=== PATIENT | male | born 1965 | race Caucasian/White ===

== ENCOUNTER 2018-05-31 19:43 | Observation (INO) | payer BC ==
[2018-05-31] MEDS ORDERED: Aspirin 81 MG Tab.Chew PO ONE (19:51)
[2018-05-31] MEDS ORDERED: Sodium Chloride 0.9% 10 ML Syringe FLUSH PRN (19:52)
[2018-05-31] MEDS ORDERED: Sodium Chloride 0.9% 2.5 ML Syringe FLUSH PRN (19:52)
[2018-05-31] MEDS ORDERED: Aspirin 81 MG Tab.Chew ONE (19:54)
--- NOTE | 2018-05-31 19:58 | EDM.PDOC ---
ED HPI GENERAL MEDICAL PROBLEM - General Chief Complaint: Respiratory Problem Stated Complaint: SOB Time Seen by Provider: 05/31/18 19:51 - History of Present Illness INITIAL COMMENTS - FREE TEXT/NARRATIVE: HISTORY AND PHYSICAL: History of present illness: The patient is a 53-year-old male with no significant past medical history who presents with complaints of feeling lightheaded dizzy and short of breath that started several days ago and has been episodic in nature. The patient was seen at [facility] ER on Sunday night and had a workup there for similar symptoms and he said that some of his tests were abnormal so he was transferred to [facility] in [place]. He said he was not admitted to the hospital but he spent several hours in the ER and they did more tests and he was discharged home. The doctor at [facility] gave him a prescription for a beta leroy and he says that he started that and today is the second day of him taking that medication. He was also told to take an aspirin and one baby every day and he is not sure why the doctor started him on these meds. The patient says that he did not have any follow-up set up when he was discharged from [facility] and he is not a resident of this area and lives in [place] where his family doctor is. The patient has no significant social or family history and he says his mom had A. fib and his dad had a valve replacement but no cardiac disease. The patient says that since he left [facility] he felt initially good and then he has had several episodes of similar symptoms for which she presents tonight which have come and gone and have not been extreme. Tonight he said that he felt lightheaded dizzy and short of breath, the symptoms he has been having all along , but they seem to be more intense so he came here for evaluation. He is not passing out or blacking out has no abdominal pain fevers chills cough or upper respiratory symptoms vomiting or diarrhea. He is eating all his meals. Here in the ED he says he also has slight pain at the upper part of his sternum when he touches it but he does not feel it unless he is pushing on it. He has no trauma to his chest. The patient tells me he had a whole lab panel done at home recently and was all within normal limits and he had his cholesterol or lipids checked in the spring and they were normal. The patient tells me he did take his new beta leroy today as prescribed as well as one baby aspirin. Patient tells nursing that he has had similar symptoms on and off since that time her and he has seen his provider at home and also had a 30 day Holter monitor which he has not met with his physician at home to discuss the results. He did not initially offer this information to me. Review of systems: As per history of present illness and below otherwise all systems reviewed and negative. Past medical history: As per history of present illness and as reviewed below otherwise noncontributory. Surgical history: As per history of present illness and as reviewed below otherwise noncontributory. Social history: No reported history of drug or alcohol abuse. Family history: As per history of present illness and as reviewed below otherwise noncontributory. Physical exam: General: Well-developed well-nourished mildly overweight man who is nontoxic and seems slightly anxious in the ED but vital signs are reviewed by me. HEENT: Atraumatic, normocephalic, pupils reactive, negative for conjunctival pallor or scleral icterus, mucous membranes moist, throat clear, neck supple, nontender, trachea midline. Lungs: Clear to auscultation, breath sounds equal bilaterally, chest is tender to palpation at the upper third of the sternum when I touch but there is no defects deformities or crepitus. When I palpate this area reproduces the pain the patient is talking about Heart: S1S2, regular, negative for clicks, rubs, or JVD. No overt murmurs Abdomen: Soft, nondistended, nontender. Negative for masses or hepatosplenomegaly. NABS Pelvis: Stable nontender. Genitourinary: Deferred. Rectal: Deferred. Extremities: Atraumatic, negative for cords or calf pain. Neurovascular unremarkable. No pedal edema or leg asymmetry Neuro: Awake, alert, oriented. Cranial nerves II through XII unremarkable. Cerebellum unremarkable. Motor and sensory unremarkable throughout. Exam nonfocal. Diagnostics: EKG CBC CMP INR d-dimer troponin chest x-ray Therapeutics: IV O2 monitor 3 baby aspirin as patient took one this morning Patient and son at bedside are aware of all testing results and recommendation for observation admission. He is aware of my concerns and accepts them. As I'm talking to him he saying that he is having a brief episode of his symptoms were he feels kind of woozy and lightheaded and during this brief period of 15-20 seconds I observe the monitor to give me no signs of ectopy or arrhythmia and no change in O2 sat and blood pressure stays stable. Please note that the patient does tell me that he is in town for a and he has been under some additional emotional stress. 2114: Testing results were discussed with the hospitalist Dr. Cooper who agrees with observation admission. I've also discussed all testing results with the patient and now his at bedside and the patient is now agreeable for admission. He continues to talk about how there were some events at his visit to the ER in [place] that seemed atypical and it was the provider at that facility they gave him the prescription for the beta leroy. He says that something was positive there but he can't recall what and he also says that at one point he did drop his blood pressure or heart rate but he can't recall. We will have the patient sign a release to get these medical records to help assist the hospitalist. Impression: Episodic lightheadedness and dyspnea, rule out anginal equivalent Definitive disposition and diagnosis as appropriate pending reevaluation and review of above. Chest Pain Score (Numeric/FACES): 8 - Related Data Allergies Allergy/AdvReac Type Severity Reaction Status Date / Time No Known Allergies Allergy Verified 05/31/18 19:51 Home Meds: Home Meds Metoprolol Succinate [Toprol XL] 25 mg PO DAILY 05/31/18 [History] ED ROS GENERAL - Review of Systems Review Of Systems: ROS reveals no pertinent complaints other than HPI. ED EXAM, GENERAL - Physical Exam Exam: See Below (see dictation) Course - Vital Signs Last Recorded V/S: Last Vital Signs Temp 36.5 C 05/31/18 21:15 Pulse 77 05/31/18 21:15 Resp 18 05/31/18 21:15 BP 146/91 H 05/31/18 21:15 Pulse Ox 96 05/31/18 21:15 - Orders/Labs/Meds Orders: Active Orders 24 hr Category Date Time Status Patient Status [ADT] Stat ADT 05/31/18 21:41 Ordered Cardiac Monitoring [RC] . DIRECTED Care 05/31/18 19:52 Active EKG Documentation Completion [RC] STAT Care 05/31/18 19:52 Active Oxygen Therapy, ED [RC] ASDIRECTED Care 05/31/18 19:52 Active Pulse Oximetry [RC] ASDIRECTED Care 05/31/18 19:52 Active Chest 1V Frontal [CR] Stat Exams 05/31/18 19:52 Taken Sodium Chloride 0.9% [Saline Flush] Med 05/31/18 19:52 Active 10 ml FLUSH ASDIRECTED PRN Sodium Chloride 0.9% [Saline Flush] Med 05/31/18 19:52 Active 2.5 ml FLUSH ASDIRECTED PRN Saline Lock Insert [OM.PC] Stat Oth 05/31/18 19:52 Ordered Medication Orders Sodium Chloride (Saline Flush) 10 ml FLUSH ASDIRECTED PRN PRN Reason: Keep Vein Open Sodium Chloride (Saline Flush) 2.5 ml FLUSH ASDIRECTED PRN PRN Reason: Keep Vein Open Labs: Laboratory Tests 05/31/18 05/31/18 05/31/18 Range/Units 19:58 19:58 19:58 WBC 9.73 (4.0-11.0) K/uL RBC 5.31 (4.50-5.90) M/uL Hgb 15.6 (13.0-17.0) g/dL Hct 46.0 (38.0-50.0) % MCV 86.6 (80.0-98.0) fL MCH 29.4 (27.0-32.0) pg MCHC 33.9 (31.0-37.0) g/dL RDW Std Deviation 40.5 (28.0-62.0) fl RDW Coeff of Paty 13 (11.0-15.0) % Plt Count 166 (150-400) K/uL MPV 10.10 (7.40-12.00) fL Neut % (Auto) 60.8 (48.0-80.0) % Lymph % (Auto) 28.7 (16.0-40.0) % [place] % (Auto) 8.3 (0.0-15.0) % Eos % (Auto) 1.6 (0.0-7.0) % Baso % (Auto) 0.6 (0.0-1.5) % Neut # (Auto) 5.9 H (1.4-5.7) K/uL Lymph # (Auto) 2.8 H (0.6-2.4) K/uL [place] # (Auto) 0.8 (0.0-0.8) K/uL Eos # (Auto) 0.2 (0.0-0.7) K/uL Baso # (Auto) 0.1 (0.0-0.1) K/uL Nucleated RBC % 0.0 /100WBC Nucleated RBCs # 0 K/uL INR 0.98 D-Dimer, Quantitative 0.21 (0.0-0.52) mg/LFEU Sodium 140 (136-148) mmol/L Potassium 3.6 (3.5-5.1) mmol/L Chloride 104 (98-107) mmol/L Carbon Dioxide 27.0 (21.0-32.0) mmol/L BUN 19 H (7.0-18.0) mg/dL Creatinine 1.0 (0.8-1.3) mg/dL Est Cr Clr Drug Dosing TNP Estimated GFR (MDRD) > 60.0 ml/min Glucose 106 (74-106) mg/dL Calcium 9.4 (8.5-10.1) mg/dL Total Bilirubin 0.2 (0.2-1.0) mg/dL AST 16 (15-37) IU/L ALT 47 (14-63) IU/L Alkaline Phosphatase 71 (46-116) U/L Troponin I < 0.050 (0.000-0.056) ng/mL Total Protein 7.7 (6.4-8.2) g/dL Albumin 3.9 (3.4-5.0) g/dL Globulin 3.8 (2.6-4.0) g/dL Albumin/Globulin Ratio 1.0 (0.9-1.6) Meds: Medications Generic Name Dose Route Start Last Admin Trade Name Freq PRN Reason Stop Dose Admin Sodium Chloride 10 ml 05/31/18 19:52 Saline Flush FLUSH ASDIRECTED PRN Keep Vein Open Sodium Chloride 2.5 ml 05/31/18 19:52 Saline Flush FLUSH ASDIRECTED PRN Keep Vein Open Discontinued Medications Generic Name Dose Route Start Last Admin Trade Name Freq PRN Reason Stop Dose Admin Aspirin 243 mg 05/31/18 19:51 05/31/18 19:57 Aspirin PO 05/31/18 19:52 243 mg ONETIME ONE Administration Aspirin Confirm 05/31/18 19:54 05/31/18 19:58 Aspirin Administered 05/31/18 19:55 Not Given Dose 243 mg .ROUTE .STK-MED ONE Departure - Departure Time of Disposition: 21:45 Disposition: Refer to Observation Condition: Good Clinical Impression: Lightheadedness, Anginal equivalent Dyspnea Qualifiers: Dyspnea type: unspecified Qualified Code(s): R06.00 - Dyspnea, unspecified - Discharge Information Referrals: PCP,None [Primary Care Provider] - Forms: ED Department Discharge - My Orders Last 24 Hours: My Active Orders 05/31/18 19:52 Cardiac Monitoring [RC] . DIRECTED EKG Documentation Completion [RC] STAT Oxygen Therapy, ED [RC] ASDIRECTED Pulse Oximetry [RC] ASDIRECTED Chest 1V Frontal [CR] Stat Sodium Chloride 0.9% [Saline Flush] 10 ml FLUSH ASDIRECTED PRN Sodium Chloride 0.9% [Saline Flush] 2.5 ml FLUSH ASDIRECTED PRN Saline Lock Insert [OM.PC] Stat 05/31/18 21:41 Patient Status [ADT] Stat - Assessment/Plan Last 24 Hours: My Active Orders 05/31/18 19:52 Cardiac Monitoring [RC] . DIRECTED EKG Documentation Completion [RC] STAT Oxygen Therapy, ED [RC] ASDIRECTED Pulse Oximetry [RC] ASDIRECTED Chest 1V Frontal [CR] Stat Sodium Chloride 0.9% [Saline Flush] 10 ml FLUSH ASDIRECTED PRN Sodium Chloride 0.9% [Saline Flush] 2.5 ml FLUSH ASDIRECTED PRN Saline Lock Insert [OM.PC] Stat 05/31/18 21:41 Patient Status [ADT] Stat
[2018-05-31 20:35] LABS: CHLORIDE,CL 104 mmol/L (98-107); SODIUM,NA 140 mmol/L (136-148)
--- NOTE | 2018-05-31 23:24 | PCM.HP ---
H&P History of Present Illness - General Date of Service: 05/31/18 Admit Problem/Dx: Admission Diagnosis/Problem Admission Diagnosis/Problem Lightheadedness - History of Present Illness Initial Comments - Free Text/Narative: 53 yo male who for the past month has been having lightheadedness, palpitations and chest tightness. It occurs about once a day and last 20 to 30 minutes at a time. He was placed on an event monitor for this but has taken it off and not sent it back to be interpreted yet. He was seen in [place] on the with these symptoms he was troponin was normal and CKMB minimally elevated at 4. He was given nitroglycerin and his blood pressure droped and he was rescucitated with IV fluids. He was transferred to [place] and was discharged from their ER. Today he has had the worst of the symptoms. In the ED his EKG and troponin did not show any signs of cardiac ischemia. ED physician referred for observation. Chest Pain Score (Numeric/FACES): 8 - Related Data Allergies/Adverse Reactions: Allergies Allergy/AdvReac Type Severity Reaction Status Date / Time No Known Allergies Allergy Verified 05/31/18 23:44 Home Medications: Home Meds Aspirin 81 mg PO DAILY 05/31/18 [History] Metoprolol Succinate [Toprol XL] 50 mg PO DAILY 05/31/18 [History] Past Medical History - Past Health History Medical/Surgical History: Denies Medical/Surgical History - Infectious Disease History Infectious Disease History: Reports: Chicken Pox - Past Surgical History HEENT Surgical History: Reports: Oral Surgery, Tonsillectomy Neurological Surgical History: Reports: Other (See Below) Other Neurological Surgeries/Procedures: Cerival surgery, plate from one to another. Unsure of exact surgery. Social & Family History - Family History Family Medical History: Noncontributory - Tobacco Use Smoking Status *Q: Never Smoker Used Tobacco, but Quit: Yes Month/Year Tobacco Last Used: 05/07 Second Hand Smoke Exposure: No - Caffeine Use Caffeine Use: Reports: Coffee Other Caffeine Use: Gave up Caffeine a few weeks ago. - Recreational Drug Use Recreational Drug Use: No H&P Review of Systems - Review of Systems: Review Of Systems: ROS reveals no pertinent complaints other than HPI. Exam - Exam Exam: See Below - Vital Signs Vital Signs: Last Vital Signs Temp 36.2 C 05/31/18 22:30 Pulse 74 01/11/19 22:30 Resp 16 05/31/18 22:30 BP 142/89 H 05/31/18 22:30 Pulse Ox 95 05/31/18 22:30 Weight: 116.528 kg - Exam General: Alert, Oriented Lungs: Clear to Auscultation, Normal Respiratory Effort Cardiovascular: Regular Rate, Regular Rhythm GI/Abdominal Exam: Soft, Non-Tender Extremities: Non-Tender Skin: Warm, Dry, Intact - Patient Data Lab Results Last 24 hrs: Laboratory Results - last 24 hr 05/31/18 05/31/18 05/31/18 Range/Units 19:58 19:58 19:58 WBC 9.73 (4.0-11.0) K/uL RBC 5.31 (4.50-5.90) M/uL Hgb 15.6 (13.0-17.0) g/dL Hct 46.0 (38.0-50.0) % MCV 86.6 (80.0-98.0) fL MCH 29.4 (27.0-32.0) pg MCHC 33.9 (31.0-37.0) g/dL RDW Std Deviation 40.5 (28.0-62.0) fl RDW Coeff of Paty 13 (11.0-15.0) % Plt Count 166 (150-400) K/uL MPV 10.10 (7.40-12.00) fL Neut % (Auto) 60.8 (48.0-80.0) % Lymph % (Auto) 28.7 (16.0-40.0) % [place] % (Auto) 8.3 (0.0-15.0) % Eos % (Auto) 1.6 (0.0-7.0) % Baso % (Auto) 0.6 (0.0-1.5) % Neut # (Auto) 5.9 H (1.4-5.7) K/uL Lymph # (Auto) 2.8 H (0.6-2.4) K/uL [place] # (Auto) 0.8 (0.0-0.8) K/uL Eos # (Auto) 0.2 (0.0-0.7) K/uL Baso # (Auto) 0.1 (0.0-0.1) K/uL Nucleated RBC % 0.0 /100WBC Nucleated RBCs # 0 K/uL INR 0.98 D-Dimer, Quantitative 0.21 (0.0-0.52) mg/LFEU Sodium 140 (136-148) mmol/L Potassium 3.6 (3.5-5.1) mmol/L Chloride 104 (98-107) mmol/L Carbon Dioxide 27.0 (21.0-32.0) mmol/L BUN 19 H (7.0-18.0) mg/dL Creatinine 1.0 (0.8-1.3) mg/dL Est Cr Clr Drug Dosing TNP Estimated GFR (MDRD) > 60.0 ml/min Glucose 106 (74-106) mg/dL Calcium 9.4 (8.5-10.1) mg/dL Total Bilirubin 0.2 (0.2-1.0) mg/dL AST 16 (15-37) IU/L ALT 47 (14-63) IU/L Alkaline Phosphatase 71 (46-116) U/L Troponin I < 0.050 (0.000-0.056) ng/mL Total Protein 7.7 (6.4-8.2) g/dL Albumin 3.9 (3.4-5.0) g/dL Globulin 3.8 (2.6-4.0) g/dL Albumin/Globulin Ratio 1.0 (0.9-1.6) Result Diagrams: 05/31/18 19:58 05/31/18 19:58 Problem List Initiated/Reviewed/Updated: Yes Orders Last 24hrs: Active Orders 24 hr Category Date Time Status Patient Status [ADT] Stat ADT 05/31/18 21:41 Active Cardiac Monitoring [RC] . DIRECTED Care 05/31/18 19:52 Active EKG Documentation Completion [RC] STAT Care 05/31/18 19:52 Active Pulse Oximetry [RC] ASDIRECTED Care 05/31/18 19:52 Active Chest 1V Frontal [CR] Stat Exams 05/31/18 19:52 Taken Sodium Chloride 0.9% [Saline Flush] Med 05/31/18 19:52 Active 10 ml FLUSH ASDIRECTED PRN Sodium Chloride 0.9% [Saline Flush] Med 05/31/18 19:52 Active 2.5 ml FLUSH ASDIRECTED PRN Saline Lock Insert [OM.PC] Stat Oth 05/31/18 19:52 Ordered Medication Orders Sodium Chloride (Saline Flush) 10 ml FLUSH ASDIRECTED PRN PRN Reason: Keep Vein Open Sodium Chloride (Saline Flush) 2.5 ml FLUSH ASDIRECTED PRN PRN Reason: Keep Vein Open Assessment/Plan Comment:: 53 yo male admitted for chest pain. He ruled out with serial negative cardiac enzymes and had no events on telemetry overnight. Patient was discharged home. He reported already has stress test scheduled and he was advised to complete his event monitor study.
--- NOTE | 2018-06-03 14:57 | CR ---
EXAM DATE: 05/31/18 PATIENT'S AGE: 53 Patient: TIANA ESTEVES Facility: [place], [place] Site . Site : [id number] Study: XRay Chest [id number]/11/2019 8:47:12 PM Ordering Physician: Doctor Qiuck Final Report: Indication: Shortness of breath. Lightheadedness. Technique: A single AP portable view of the chest was obtained. Comparison: None Findings: The heart is normal in size. The right hemidiaphragm is elevated. No infiltrate , pleural effusion, or pneumothorax is identified. Impression: No acute cardiopulmonary process. Dictated by Marcia Chamberlain MD @ May 31 2018 8:53PM (Electronic Signature) Report Signed by Proxy. [email or web address]
== END 2018-06-01 02:05 | disposition home or self-care (01) ==
LOC: MW.ED 19:43 → MW.MS 21:56
PROVIDERS: ADMIT Internal Medicine; ATTEND Internal Medicine
DX: R07.89 Other chest pain (principal); R42 Dizziness and giddiness; R00.2 Palpitations
CPT/HCPCS: 36415; 71045; 80053; 84484; 85025; 85379; 85610; 93005; 99285; A9270; G0378